=== PATIENT | female | born 1965 ===

== ENCOUNTER 2017-05-24 17:51 | Emergency (ER) | payer OTHER, SELFPAY ==
[2017-05-24] MEDS ORDERED: Sodium Chloride 0.9% 1,000 ML IV STA (18:23)
--- NOTE | 2017-05-24 18:37 | ED PDOC ---
HPI: Abdomen <Arnel Chanel - Last Filed: 05/24/17 20:11> Chief Complaint (Provider): Abdominal Pain History Per: Patient History/Exam Limitations: no limitations Onset/Duration Of Symptoms: Hrs Outside of [place] travel?: No Current Symptoms Are (Timing): Still Present Quality Of Discomfort: "Pain" (Pain radiates to the back, right side) Associated Symptoms: Nausea, Vomiting, Urinary Symptoms (burning with urination) . denies: Fever, Diarrhea Additional History Per: Alf <Benito Cid III - Last Filed: 05/28/17 12:23> Time Seen by Provider: 05/24/17 18:17 Chief Complaint (Nursing): Abdominal Pain Additional Complaint(s): 52 y/o female with a history of arthritis presents to the ED with abdominal pain since earlier today. Patient states she feels pain on the right side of her abdomen as well as a radiating pain to the right side of her back. She complains of nausea, vomiting, and burning with urination. Patient denies any diarrhea or fever. She denies having similar symptoms in the past. Of note, patient had a Cholecystectomy and has HTN. PMD: None provided (Benito Cid III) Past Medical History <Arnel Chanel - Last Filed: 05/24/17 20:11> Reviewed: Historical Data, Nursing Documentation, Vital Signs - Medical History PMH: HTN - Surgical History Surgical History: Cholecystectomy - Family History Family History: States: No Known Family Hx - Living Arrangements Living Arrangements: With Family - Social History Current smoker - smoking cessation education provided: No Ex-Smoker (has not smoked in the last 12 months): No Alcohol: None Drugs: Denies <Benito Cid III - Last Filed: 05/28/17 12:23> Vital Signs: Last Vital Signs Temp 97.6 F 05/24/17 22:13 Pulse 63 05/24/17 22:17 Resp 18 05/24/17 22:17 BP 111/68 05/24/17 22:17 Pulse Ox 97 05/25/17 04:41 - Home Medications Home Medications: Ambulatory Orders Medication Instructions Recorded Ciprofloxacin/Ciprofloxa HCl 500 mg PO Q12 #14 tab 01/21/14 [Ciprofloxacin] traMADol [Ultram] 50 mg PO TID #16 tab 01/21/14 Ondansetron [Zofran] 4 mg PO Q8H #12 tab 05/24/17 - Allergies Allergies/Adverse Reactions: Allergies Allergy/AdvReac Type Severity Reaction Status Date / Time No Known Allergies Allergy Verified 05/24/17 17:59 Review of Systems ROS Statement: Except As Marked, All Systems Reviewed And Found Negative Constitutional: Negative for: Fever Gastrointestinal: Positive for: Nausea, Vomiting, Abdominal Pain (right side). Negative for: Diarrhea Genitourinary Female: Positive for: Dysuria Musculoskeletal: Positive for: Back Pain (right side) <Benito Cid III - Last Filed: 05/28/17 12:23> Physical Exam - Reviewed Nursing Documentation Reviewed: Yes Vital Signs Reviewed: Yes - Physical Exam Appears: Positive for: Non-toxic, No Acute Distress Head Exam: Positive for: ATRAUMATIC, NORMOCEPHALIC Skin: Positive for: Normal Color, Warm, Dry Eye Exam: Positive for: EOMI, Normal appearance, PERRL Neck: Positive for: Normal, Painless ROM Cardiovascular/Chest: Positive for: Regular Rate, Rhythm. Negative for: Murmur Respiratory: Positive for: Normal Breath Sounds. Negative for: Respiratory Distress Gastrointestinal/Abdominal: Positive for: Tenderness (right side abd tenderness) Back: Positive for: R CVA Tenderness Extremity: Positive for: Normal ROM. Negative for: Pedal Edema, Deformity Neurologic/Psych: Positive for: Alert, Oriented (x3). Negative for: Motor/ Sensory Deficits <Benito Cid III - Last Filed: 05/28/17 12:23> - Laboratory Results Result Diagrams: 05/24/17 19:00 05/24/17 19:00 <Arnel Chanel - Last Filed: 05/24/17 20:11> - Laboratory Results Result Diagrams: 05/24/17 19:00 05/24/17 19:00 - ECG O2 Sat by Pulse Oximetry: 97 (RA) Pulse Ox Interpretation: Normal <Benito Cid III - Last Filed: 05/28/17 12:23> Medical Decision Making <Arnel Chanel - Last Filed: 05/24/17 20:11> <Benito Cid III - Last Filed: 05/28/17 12:23> Medical Decision Making: Time: 17:55 Initial Impression: Abdominal Pain Initial Plan: * CT of the Abdomen & Pelvis w/ contrast * CMP * Lipase * CBC * Toradol 30 mg IV * IV Fluids * Zofran 4 mg PO * Uranalysis * Endorse to Dr. Jones at 7 pm 19:00 Patient will be signed out to Dr. Chanel pending CT. (Benito Cid III) Disposition <Arnel Chanel - Last Filed: 05/24/17 20:11> - Patient ED Disposition Is Patient to be Admitted: Transfer of Care - Disposition Disposition: Transfer of Care Disposition Time: 19:00 Patient Signed Over To: Arnel Chanel <Benito Cid III - Last Filed: 05/28/17 12:23> - Clinical Impression Clinical Impression: Gastroenteritis - Disposition Referrals: [facility] [Outside] [facility] [Outside] Condition: IMPROVED Prescriptions: Ondansetron [Zofran] 4 mg PO Q8H #12 tab Instructions: Gastroenteritis (ED) Forms: [facility] (Tanzanian) Print Language: MARSHALLESE
[2017-05-24 19:09] LABS: BASO % 0.4 % (0.0-2.0); EOS # 0.1 K/uL (0.0-0.7); EOS % 0.7 % (0.0-4.0); HEMOGLOBIN 13.5 g/dL (12.0-16.0); LYMPH # 1.9 K/uL (1.0-4.3); LYMPH % 16.6 % (20.0-40.0); MEAN CELL VOLUME 89.3 fl (81.0-99.0); MEAN CORPUSCULAR HGB CONC 33.6 g/dL (33.0-37.0); MEAN PLATELET VOLUME 9.4 fl (7.2-11.7); MONO # 0.5 K/uL (0.0-0.8); MONO % 4.5 % (0.0-10.0); NEUT # 8.8 K/uL (1.8-7.0); NEUT % 77.8 % (50.0-75.0); NRBC % 0.1 % (0.0-0.0); RBC 4.51 Mil/uL (3.80-5.20); RED CELL DISTRIBUTION WIDTH 13.9 % (11.5-14.5); WHITE BLOOD COUNT 11.3 K/uL (4.8-10.8)
[2017-05-24 19:21] LABS: SQUAMOUS EPITHIAL 8 /hpf (0-5); URINE BILIRUBIN NEGATIVE (NEGATIVE); URINE BLOOD NEGATIVE (NEGATIVE); URINE CLARITY SLIGHTY-CLOUDY (Clear); URINE COLOR YELLOW (YELLOW); URINE GLUCOSE (UA) NEG (Normal); URINE LEUKOCYTE ESTERASE NEG Leu/uL (Negative); URINE PROTEIN 30 mg/dL (NEGATIVE); URINE UROBILINOGEN 0.2-1.0 mg/dL (0.2-1.0)
[2017-05-24 19:23] LABS: ALB/GLOB RATIO 1.2 (1.0-2.1); ALBUMIN 4.2 g/dL (3.5-5.0); ALT/SGPT 145 U/L (9-52); AST/SGOT 70 U/L (14-36); BLOOD UREA NITROGEN 12 mg/dl (7-17); CALCIUM 9.8 mg/dL (8.4-10.2); GFR AFRICAN-AMERICAN > 60; GFR NON-AFRICAN AMERICAN > 60; LIPASE 147 U/L (23-300)
--- NOTE | 2017-05-24 20:12 | ED PDOC ---
"- Laboratory Results Result Diagrams: 05/24/17 19:00 05/24/17 19:00 - ECG O2 Sat by Pulse Oximetry: 97 (RA) Medical Decision Making Medical Decision Makin:00 Patient transfer to ma by Dr. Cid pending CT. EXAM: CT Abdomen and Pelvis With Intravenous Contrast CLINICAL HISTORY: 52 years old, female; Pain; Abdominal pain; Localized; Right lower quadrant (rlq ); Prior surgery; Surgery date: 6+ months; Surgery type: Cholecystectomy; Additional info: Rlq and flank pain TECHNIQUE: Axial computed tomography images of the abdomen and pelvis with intravenous contrast. All CT scans at this facility use one or more dose reduction techniques, viz.: automated exposure control; ma/kV adjustment per patient size (including targeted exams where dose is matched to indication; i.e. head); or iterative reconstruction technique. Coronal and sagittal reformatted images were created and reviewed. CONTRAST: 95 mL of [id number] administered intravenously. COMPARISON: CT - ABD PELVIS PO IV CONTRAST 2014-01-21 02:30 FINDINGS: Lower thorax: Minimal atelectasis/scarring. LLL calcified granuloma. ABDOMEN: Liver: Fatty infiltration. Gallbladder and bile ducts: Cholecystectomy. No significant ductal dilation. Pancreas: No ductal dilation. No mass. Spleen: No splenomegaly. Adrenals: 3.8 x 4.2 x 4.1 cm left adrenal mass containing fat and soft tissue elements. Mild increase in fat content but no significant change in overall size. Kidneys and ureters: Mild scarring of right kidney. No hydronephrosis. Stomach and bowel: No definite mural thickening. Few minimally distended loops of small bowel, likely ileus. Appendix: Normal caliber. No inflammation. PELVIS: Bladder: Unremarkable. Reproductive: Unremarkable as visualized. SANTOSH RANGEL | Final Radiology Report CONFIDENTIALITY STATEMENT This report is intended only for use by the referring physician, and only in accordance with law. If you received this in error, call [phone]. Page 2 of 2 ABDOMEN and PELVIS: Intraperitoneal space: No significant fluid collection. No free air. Bones/joints: No acute fracture. Soft tissues: Unremarkable. Vasculature: Unremarkable. No aneurysm. Lymph nodes: No pathologically enlarged lymph nodes. IMPRESSION: 1. No definite acute intraabdominal abnormality. 2. Left adrenal myelolipoma. 3. Incidental/non-acute findings are described above. Thank you for allowing us to participate in the care of your patient. Dictated and Authenticated by: Sina Rausch MD 05/24/2017 9:32 PM Eastern Time ([place] & [place]) Patient re-evaluated at bedside, tolerating PO, she states she feels much better and wants to go home. Explained to patient that she has to take plenty of fluids and stay hydrated. Return precatuions discussed such as worsening pain, vomiting, or other concerning symptoms. Advised patient to followup with PMD in 1 -2 days. Disposition - Clinical Impression Clinical Impression: Gastroenteritis - POA Present On Arrival: None - Disposition Referrals: [facility] [Outside] [facility] [Outside] Disposition: Routine/Home Disposition Time: 22:00 Condition: IMPROVED Prescriptions: Ondansetron [Zofran] 4 mg PO Q8H #12 tab Instructions: Gastroenteritis (ED) Forms: [facility] (Nauruan) Print Language: ERITREAN"
[2017-05-24] MEDS ORDERED: Iohexol 300 100 ML IJ ONE (20:14)
--- NOTE | 2017-05-24 21:32 | CT ---
EXAM: CT Abdomen and Pelvis With Intravenous Contrast CLINICAL HISTORY: 52 years old, female; Pain; Abdominal pain; Localized; Right lower quadrant (rlq); Prior surgery; Surgery date: 6+ months; Surgery type: Cholecystectomy; Additional info: Rlq and flank pain TECHNIQUE: Axial computed tomography images of the abdomen and pelvis with intravenous contrast. All CT scans at this facility use one or more dose reduction techniques, viz.: automated exposure control; ma/kV adjustment per patient size (including targeted exams where dose is matched to indication; i.e. head); or iterative reconstruction technique. Coronal and sagittal reformatted images were created and reviewed. CONTRAST: 95 mL of [id number] administered intravenously. COMPARISON: CT - ABD PELVIS PO IV CONTRAST 2014-01-21 02:30 FINDINGS: Lower thorax: Minimal atelectasis/scarring. LLL calcified granuloma. ABDOMEN: Liver: Fatty infiltration. Gallbladder and bile ducts: Cholecystectomy. No significant ductal dilation. Pancreas: No ductal dilation. No mass. Spleen: No splenomegaly. Adrenals: 3.8 x 4.2 x 4.1 cm left adrenal mass containing fat and soft tissue elements. Mild increase in fat content but no significant change in overall size. Kidneys and ureters: Mild scarring of right kidney. No hydronephrosis. Stomach and bowel: No definite mural thickening. Few minimally distended loops of small bowel, likely ileus. Appendix: Normal caliber. No inflammation. PELVIS: Bladder: Unremarkable. Reproductive: Unremarkable as visualized. ABDOMEN and PELVIS: Intraperitoneal space: No significant fluid collection. No free air. Bones/joints: No acute fracture. Soft tissues: Unremarkable. Vasculature: Unremarkable. No aneurysm. Lymph nodes: No pathologically enlarged lymph nodes. IMPRESSION: 1. No definite acute intraabdominal abnormality. 2. Left adrenal myelolipoma. 3. Incidental/non-acute findings are described above.
[2017-05-25 11:29] VITALS: BP 111/68; PULSE 63; RESP 18; TEMP 97.6; O2SAT 97
== END 2017-05-24 22:26 | disposition home or self-care (01) ==
LOC: H.ER 17:51
DX: K52.9 Noninfective gastroenteritis and colitis, unspecified (principal); I10 Essential (primary) hypertension; Z90.49 Acquired absence of other specified parts of digestive tract
CPT/HCPCS: 74177; 80053; 81003; 81025; 83690; 85025; 96360; 99284; J1885; J7040; Q9967

== ENCOUNTER 2017-06-22 09:18 | Emergency (ER) | payer SELFPAY ==
[2017-06-22 09:34] VITALS: TEMP 98.3; O2SAT 100
--- NOTE | 2017-06-22 11:14 | RAD ---
PROCEDURE: Radiographs of the Lumbar Spine. HISTORY: pain COMPARISON: No prior. FINDINGS: BONES: Normal alignment. No listhesis. No fracture. Bilateral L5-S1 facet mild hypertrophic arthrosis. DISC SPACES: Unremarkable. OTHER FINDINGS: Right upper quadrant cholecystectomy clips. Stool retention. Partially visualized bilateral hip arthrosis. Unremarkable appearing SI joints IMPRESSION: No fracture or lytic lesion. Bilateral L5-S1 facet mild hypertrophic arthrosis Stool retention
--- NOTE | 2017-06-22 11:17 | RAD ---
PROCEDURE: HISTORY: pain COMPARISON: None TECHNIQUE: Six views FINDINGS: Right ankle -unremarkable Left ankle: Abnormal morphology and density navicular concerning for prior fracture here -perhaps stress type. Given the sclerotic changes secondary osteo necrosis here a consideration. Dorsal talonavicular osseous hypertrophic/productive arthrosis suggested. Talar dome intact no osteochondral lesion here suggested. IMPRESSION: Abnormal findings left ankle most notably affecting the navicular bone as detailed above. Correlation with past medical history recommended. No acute pathology here bleed present
--- NOTE | 2017-06-22 12:31 | ED PDOC ---
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 Denies history diabetes. Told in past has arthritis. Limits ability to walk, currently not working. Denies redness, fever, new trauma /falls or edema. Past Medical History Reviewed: Historical Data, Nursing Documentation, Vital Signs Vital Signs: Last Vital Signs Temp 98.3 F 06/22/17 11:53 Pulse 88 06/22/17 09:30 Resp 19 06/22/17 09:30 BP 132/72 06/22/17 09:30 Pulse Ox 100 06/22/17 09:30 - Medical History PMH: Arthritis, HTN - Surgical History Surgical History: Cholecystectomy - Family History Family History: States: Unknown Family Hx - Social History Current smoker - smoking cessation education provided: No - Immunization History Hx Tetanus Toxoid Vaccination: No Hx Influenza Vaccination: No Hx Pneumococcal Vaccination: No - Home Medications Home Medications: Ambulatory Orders Medication Instructions Recorded Ciprofloxacin/Ciprofloxa HCl 500 mg PO Q12 #14 tab 01/21/14 [Ciprofloxacin] traMADol [Ultram] 50 mg PO TID #16 tab 01/21/14 Ondansetron [Zofran] 4 mg PO Q8H #12 tab 05/24/17 - Allergies Allergies/Adverse Reactions: Allergies Allergy/AdvReac Type Severity Reaction Status Date / Time No Known Allergies Allergy Verified 05/24/17 17:59 Review of Systems Constitutional: Negative for: Fever ENT: Negative for: Nose Discharge Cardiovascular: Negative for: Chest Pain Respiratory: Negative for: Cough Gastrointestinal: Negative for: Nausea Genitourinary Female: Negative for: Dysuria Musculoskeletal: Positive for: Back Pain, Leg Pain, Foot Pain. Negative for: Neck Pain, Shoulder Pain, Arm Pain Skin: Negative for: Rash, Lesions Neurological: Negative for: Weakness, Numbness, Headache Physical Exam - Reviewed Nursing Documentation Reviewed: Yes Vital Signs Reviewed: Yes - Physical Exam Appears: Positive for: Well, Non-toxic, No Acute Distress Head Exam: Positive for: ATRAUMATIC, NORMAL INSPECTION, NORMOCEPHALIC Skin: Positive for: Normal Color, Warm, DRY Eye Exam: Positive for: EOMI, Normal appearance, PERRL ENT: Positive for: Normal ENT Inspection Neck: Positive for: Normal, Painless ROM Cardiovascular/Chest: Positive for: Regular Rate, Rhythm Respiratory: Positive for: CNT, Normal Breath Sounds Gastrointestinal/Abdominal: Positive for: Normal Exam, Soft Back: Positive for: Normal Inspection Extremity: Positive for: Tenderness (L ankle (mild) no deformity, normal ROM b/l , no erythema/edema/lesions), Capillary Refill (<2sec). Negative for: Pedal Edema, Calf Tenderness, Deformity, Swelling Neurologic/Psych: Positive for: Alert, Oriented - ECG O2 Sat by Pulse Oximetry: 100 Medical Decision Making Medical Decision Making: pain medicine and xrays ordered L ankle reveals abnormal navicular. Podiatry consult requested. \ Disposition - Disposition Forms: [facility] (Danish)
[2017-06-22 14:47] VITALS: BP 132/82; PULSE 82; RESP 18
--- NOTE | 2017-06-22 16:18 | CP.PCM.CON ---
History of Present Illness - History of Present Illness History of Present Illness: 52F seen in ED complaining of diffuse b/l LE pain that has been present for multiple years and has recently become more severe. Patient states that she has been seen for the pain in the past at the Podiatry Clinic in [facility] and she has been told that she has osteoarthritis as well as tendonitis in multiple parts of her b/l LE. Patient states that she has taken Naproxen and Meloxicam in the past which has helped. She denies any recent trauma to either foot or leg. Denies any further LE complaints at this time. Denies any recent N/ V/F/C/CP/SOB/D/posterior calf pain when squeezed Review of Systems - Review of Systems Review of Systems: ROS as per HPI Past Patient History - Infectious Disease Hx of Infectious Diseases: None - Past Social History Smoking Status: Never Smoked - CARDIAC Hx Hypertension: Yes - MUSCULOSKELETAL/RHEUMATOLOGICAL Hx Arthritis: Yes - GASTROINTESTINAL Other/Comment: gallbladder stent - GENITOURINARY/GYNECOLOGICAL Hx Urinary Tract Infection: Yes - PSYCHIATRIC Hx Psychophysiologic Disorder: No Hx Substance Use: No - SURGICAL HISTORY Hx Cholecystectomy: Yes - ANESTHESIA Hx Anesthesia: Yes Hx Anesthesia Reactions: No Meds Home Medications: Home Medication List Medication Instructions Recorded Confirmed Type Naproxen [Naprosyn] 500 mg PO BID PRN #14 tablet 06/22/17 Rx Allergies/Adverse Reactions: Allergies Allergy/AdvReac Type Severity Reaction Status Date / Time No Known Allergies Allergy Verified 05/24/17 17:59 Physical Exam - Constitutional Appears: Well, Non-toxic, No Acute Distress - Extremities Exam Additional comments: B/l LE focused exam: Vasc: DP/PT pulses fully palpable 2/4. CFT < 3 seconds to all digits. Skin temperature warm to warm from proximal to distal. No edema noted b/l Neuro: Epicritic and protective sensation grossly intact b/l Derm: No open lesions, wounds, maceration, xerosis, abnormal pigmentation or abnormal growths noted b/l MSK: No focal POP illicited to either leg or foot. No gross abnormalities noted - Neurological Exam Neurological exam: Alert, Oriented x3 - Psychiatric Exam Psychiatric exam: Normal Affect, Normal Mood Results - Vital Signs Recent Vital Signs: Last Vital Signs Temp 98.3 F 06/22/17 14:15 Pulse 82 04/26/18 14:15 Resp 18 06/22/17 14:15 BP 132/82 06/22/17 14:15 Pulse Ox 100 06/22/17 14:15 Assessment & Plan - Assessment and Plan (Free Text) Assessment: 52F seen in ED for nonspecific pain to b/l LE most likely secondary to history osteoarthritic changes and tendonitis Plan: Patient seen in ED Plan discussed with attending Dr. Joya Charts, labs, vitals reviewed Afebrile Patient given Toradol and Ultram in ED per ED recommendations B/l ankle x-rays taken, L ankle view shows abnormal morphology to navicular possibly secondary to prior fracture vs. osteonecrosis Patient does not complain of POP to level of L navicular Patient given Rx Naproxen Pt to f/u in [facility] clinic next Monday - Date & Time Date: 06/22/17 Time: 16:27
== END 2017-06-22 14:15 | disposition home or self-care (01) ==
LOC: H.ER 09:18
DX: M79.604 Pain in right leg (principal); M79.605 Pain in left leg; M19.90 Unspecified osteoarthritis, unspecified site; I10 Essential (primary) hypertension
CPT/HCPCS: 72114; 73610; 96374; 99283; J1885